=== PATIENT | female | born 1995 | race Two or more races ===

== ENCOUNTER 2019-07-01 08:32 | Emergency (ER) | payer OTHER ==
[2019-07-01 08:43] VITALS: BP 124/50; PULSE 69; TEMP 98; BMI 29.7
[2019-07-01] MEDS ORDERED: KETOROLAC TROMETHAMINE 30 MG/1 ML VIAL IM ONE (09:08)
[2019-07-01] MEDS ORDERED: CYCLOBENZAPRINE HCL 10 MG TABLET (FP) PO ONE (09:08)
[2019-07-01] MEDS ORDERED: CYCLOBENZAPRINE HCL 10 MG TABLET (FP) ONE (09:13)
[2019-07-01] MEDS ORDERED: KETOROLAC TROMETHAMINE 30 MG/1 ML VIAL ONE (09:13)
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
== END 2019-07-01 11:00 | disposition home or self-care (01) ==
LOC: JERFT 08:32
PROC: 3E0233Z Introduction of Anti-inflammatory into Muscle, Percutaneous Approach (ICD-10-PCS; principal; 2019-07-01)
DX: M54.6 Pain in thoracic spine (principal); V43.52XA Car driver injured in collision with other type car in traffic accident, initial encounter; Y92.411 Interstate highway as the place of occurrence of the external cause; Y93.89 Activity, other specified; Y99.8 Other external cause status; Z98.84 Bariatric surgery status; Z88.0 Allergy status to penicillin; Z91.013 Allergy to seafood
CPT/HCPCS: 72070-TC-FY; 84703; 99282-25